=== PATIENT | female | born 1970 | race African-American/Black ===

== ENCOUNTER 2022-08-12 16:18 | Emergency (ER) | payer MEDICAID ==
[~2022-08-12] VITALS: Ht 175.3 cm; Wt 106.0 kg
[2022-08-12] MEDS ORDERED: IBUPROFEN 600MG TABLET PO STA (17:12)
[2022-08-12 17:32] VITALS: BP 170/107
[2022-08-12] MEDS ORDERED: NAPR-681 PO (18:43)
== END 2022-08-12 19:24 | disposition home or self-care (01) ==
LOC: ER 16:18
DX: M65.311 Trigger thumb, right thumb (principal)
CPT/HCPCS: 29125; 73110; 73140; 99284

== ENCOUNTER 2024-03-30 13:43 | Emergency (ER) | payer MEDICAID ==
[~2024-03-30] VITALS: Ht 175.3 cm; Wt 86.0 kg
[~2024-03-30 13:43] MED LIST: NAPR-681 PO
[2024-03-30 13:56] VITALS: O2SAT 98
[2024-03-30 16:28] LABS: BASOPHILS % 0.9 % (0.0-2.0); EOSINOPHILS % 4.8 % (0.0-5.0); HEMATOCRIT. 39.8 % (36.0-48.0); HEMOGLOBIN. 12.9 g/dL (12.0-16.0); LYMPHOCYTES % 43.1 % (20.0-50.0); MEAN CORPUSCULAR HEMOGLOBIN 27.4 pg (28.0-32.0); MEAN CORPUSCULAR HGB CONC 32.4 g/dL (31.0-37.0); MEAN CORPUSCULAR VOLUME 84.6 fL (81.0-99.0); MONOCYTES % 5.5 % (2.0-8.0); NEUTROPHILS % 45.7 % (40.0-76.0); RED BLOOD CELL COUNT 4.71 mill/uL (4.2-5.4); RED CELL DISTRIBUTION WIDTH 16.2 % (11.6-14.6); WHITE BLOOD COUNT 6.8 x1000/uL (4.5-11.0)
[2024-03-30 16:29] LABS: DIFFERENTIAL COMMENT 1
[2024-03-30 16:31] LABS: CARBON DIOXIDE 29 mEq/L (21-32); CHLORIDE 108 mEq/L (98-107); POTASSIUM 3.8 mEq/L (3.5-5.1); SODIUM 142 mEq/L (136-145)
[2024-03-30 16:32] LABS: CALCIUM 9.8 mg/dL (8.7-10.4)
[2024-03-30 16:37] LABS: CREATININE 0.7 mg/dL (0.6-1.0); GLUCOSE 85 mg/dL (70-105); UREA NITROGEN BLOOD 10 mg/dL (9-23)
[2024-03-30 16:39] LABS: ALANINE AMINOTRANSFERASE 8 IU/L (10-49); ALBUMIN 4.4 g/dL (3.2-4.8); ASPARTATE AMINOTRANSFERASE 10 IU/L (<34); BILIRUBIN TOTAL 0.3 mg/dL (0.1-1.0); PROTEIN TOTAL 6.9 g/dL (6.0-8.3)
[2024-03-30 16:50] LABS: MEAN PLATELET VOLUME 11.2 fl (7.4-10.4); PLATELET 142 x1000/uL (130-400)
[2024-03-30] MEDS: SODIUM CHLORIDE 0.9% 1,000 ML IV ONE (18:43)
[2024-03-30] MEDS: KETOROLAC 30MG/ML VIAL IV STA (18:59)
[2024-03-30 19:03] LABS: CLARITY URINE CLOUDY (CLEAR); COLOR URINE DARK YELLOW (YELLOW); GLUCOSE URINE NEGATIVE (NEGATIVE); KETONES URINE NEGATIVE (NEGATIVE); LEUKOCYTE ESTERASE URINE 1+ (NEGATIVE); NITRITE URINE NEGATIVE (NEGATIVE); OCCULT BLOOD URINE NEGATIVE (NEGATIVE); PH URINE 5.5 (4.5-8.0); PROTEIN URINE TRACE (NEGATIVE)
[2024-03-30 19:13] LABS: BACTERIA URINE 1+; RBC URINE 0-2 /hpf (0-2); SQUAMOUS EPITHELIAL CELL URINE 1+ /lpf (RARE/1+); YEAST URINE 2+
[2024-03-30] MEDS ORDERED: CEFP200T13 MT (21:56)
[2024-03-30] MEDS ORDERED: FLUC150T46 MT (21:56)
[2024-03-30 22:03] VITALS: BP 157/68; PULSE 53; RESP 16; TEMP 36.55848; O2SAT 99
== END 2024-03-30 22:02 | disposition home or self-care (01) ==
LOC: ER 13:43
DX: N39.0 Urinary tract infection, site not specified (principal)
CPT/HCPCS: 80053; 81003; 85025; 36415; 74177; 96361; 96374; 99285; J1885; J7030; Z7610

== ENCOUNTER 2024-11-28 11:52 | Emergency (ER) | payer MEDICAID ==
[~2024-11-28] VITALS: Ht 175.3 cm; Wt 87.0 kg
[~2024-11-28 11:52] MED LIST changes: +ATOR20TA MT; +LOSA50TA41 MT; +NITR-87 MT
[2024-11-28 12:31] VITALS: O2SAT 100
[2024-11-28] MEDS ORDERED: LIDO-53 TP (14:27)
[2024-11-28] MEDS ORDERED: ACET-2708 MT (14:27)
[2024-11-28 14:48] VITALS: BP 139/76; PULSE 53; RESP 18; TEMP 36.8; O2SAT 100
== END 2024-11-28 14:49 | disposition home or self-care (01) ==
LOC: ER 11:52
DX: R07.81 Pleurodynia (principal); Z90.710 Acquired absence of both cervix and uterus; Z79.899 Other long term (current) drug therapy; W18.30XA Fall on same level, unspecified, initial encounter; Y93.89 Activity, other specified; Y92.89 Other specified places as the place of occurrence of the external cause; Y99.8 Other external cause status
CPT/HCPCS: 71100; 73600; 99284